=== PATIENT | female | born 1990 | race Caucasian/White ===

== ENCOUNTER 2016-08-22 16:32 | Emergency (ER) | payer OTHER ==
[2016-08-22] MEDS ORDERED: ACETAMINOPHEN 325 MG TAB ONE (17:05)
[2016-08-22] MEDS ORDERED: KETOROLAC 30 MG/ML VIAL ONE (17:56)
[2016-08-22] MEDS ORDERED: SODIUM CHLORIDE 0.9% 2,000 ML ONE (17:56)
== END 2016-08-22 20:12 | disposition home or self-care (01) ==
LOC: ER 16:32
DX: N10 Acute pyelonephritis (principal)
CPT/HCPCS: 36415 ×2; 80053 ×2; 81001 ×2; 83605 ×2; 83690 ×2; 84703 ×2; 85025 ×2; 87040 ×2; 87088 ×2; 96361; 96374; J1885